=== PATIENT | male | born 1960 | race Asian ===

== ENCOUNTER 2016-12-23 09:14 | Emergency (ER) | payer BC ==
[~2016-12-23] VITALS: Ht 157.5 cm; Wt 68.0 kg
[2016-12-23 09:36] VITALS: BP 141/89
[2016-12-23] MEDS ORDERED: NAPROXEN 500 MG TABLET PO ONE (10:00)
[2016-12-23] MEDS ORDERED: CYCLOBENZAPRINE 10 MG TABLET. PO ONE (10:00)
--- NOTE | 2016-12-23 10:16 | PHYS DOC ---
Past Medical History Past Medical History: No Pertinent History Past Surgical History: No Surgical History Alcohol Use: None Drug Use: None Adult General Chief Complaint Chief Complaint: BACK PAIN OR INJURY HPI HPI Patient is a 56 year old male who presents with back injury. Patient states he was standing from sitting position in the bathroom, felt a sudden strain to his right lower back. Denies any fall or trauma. Denies lower extremity numbness or weakness. No fevers or chills, vomiting, abdominal pain, dysuria or hematuria, lower extremity numbness or weakness, saddle anesthesia, bowel/bladder incontinence/retention. No previous history of back injury. No back surgeries. Previously healthy. Visiting from [facility]. Patient speaks Polish, accompanied by a friend who is serving as a fluent inspection supervisor. Review of Systems Review of Systems Constitutional: Denies fever or chills HENT: Denies nasal congestion or sore throat Respiratory: Denies cough or shortness of breath Cardiovascular: Denies chest pain or edema GI: Denies abdominal pain, nausea, vomiting : Denies dysuria or hematuria Musculoskeletal: Reports back pain, denies joint pain Integument: Denies rash Neurologic: Denies headache, focal weakness or sensory changes Current Medications Current Medications Current Medications Medications (Trade) Dose Ordered Sig/Armond Start Time Stop Time Status Last Admin Dose Admin Cyclobenzaprine HCl (Flexeril) 10 mg 1X ONCE 12/23/16 10:00 12/23/16 10:01 DC 12/23/16 10:05 10 MG Naproxen (Naprosyn) 500 mg 1X ONCE 12/23/16 10:00 12/23/16 10:01 DC 12/23/16 10:05 500 MG Allergies Allergies Allergies Coded Allergies Type Severity Reaction Last Updated Verified No Known Drug Allergies 12/23/16 No Physical Exam Physical Exam Constitutional: Well developed, well nourished, no acute distress, non-toxic appearance. HENT: Normocephalic, atraumatic, bilateral external ears normal, oropharynx moist, nose normal. Eyes: conjunctiva normal, no discharge. Neck: supple, no stridor. Cardiovascular: RRR, no murmurs, no edema. Lungs & Thorax: LCTAB, no wheezing, no respiratory distress. Abdomen: soft, nontender, nondistended. No masses or pulsatile mass. Skin: Warm, dry, no erythema, no rash. Back: No spinal tenderness or step-offs, no CVA tenderness, right paraspinous muscle tenderness. Extremities: No tenderness, no edema. Neurologic: Alert and oriented X 3, no focal deficits noted. symmetric strength/ sensation to lower extremities, symmetric dp/pt pulses. Psychologic: Affect normal, judgement normal, mood normal. Current Patient Data Vital Signs Vital Signs Date Time Temp Pulse Resp B/P Pulse Ox O2 Delivery O2 Flow Rate FiO2 12/23/16 09:36 98.1 72 18 99 Room Air 98.1 EKG EKG [] Radiology/Procedures Radiology/Procedures [] Course & Med Decision Making Course & Med Decision Making Pertinent Labs and Imaging studies reviewed. (See chart for details) Patient presents with back pain. No spinal tenderness, no red flag symptoms to suggest serious etiology of pain. Pain appears to be muscular. Discussed results with patient and friend. X-ray likely to be low utility and he is comfortable with not having imaging performed. Gave naproxen and Flexeril here. Recommend continue Tylenol or ibuprofen and provided prescription for Flexeril to take as needed for muscle spasm, given sedation precautions, no drinking alcohol or driving while taking this medication. Follow-up with Dr. Moore in the primary care clinic or choose another physician if desired, follow-up in one to 2 weeks if symptoms not improving. Return to the emergency department for high fever, severe abdominal pain, symptoms of cauda equina syndrome, numbness or weakness in lower extremities, any otherwise worsening condition. Discharged home in stable condition.. [] Dragon Disclaimer Dragon Disclaimer This electronic medical record was generated, in whole or in part, using a voice recognition dictation system. Departure Departure Impression: Primary Impression: Lumbar strain Disposition: 01 HOME, SELF-CARE Condition: STABLE Referrals: TABITHA MOORE MD Patient Instructions: Back Pain, Adult, [id number] Additional Instructions: You seen in the emergency department today for back pain. This appears to be muscle strain. Please rest, apply ice or heat, take Tylenol or ibuprofen as needed for pain, use Flexeril for muscle spasm. Try to do gentle stretching exercises. Follow-up with Dr. Moore or the primary care doctor of your choice, in one to 2 weeks if not improving. Return to the emergency department for high fever, severe abdominal pain, numbness or weakness in legs, loss of control of bowels or bladder, any otherwise worsening condition. Scripts Cyclobenzaprine Hcl 5 Mg Tablet1 Tab PO TID PRN MUSCLE SPASMS #15 TAB Prov:NANCY TILLEY MD 12/23/16 NANCY TILLEY MD Dec 23, 2016 10:16
[2016-12-23] MEDS ORDERED: CYCL5TAB PO (10:21)
[2016-12-24] MEDS ORDERED: HYDR-971 PO (09:53)
[2016-12-24] MEDS ORDERED: IBUP-1060 PO (09:53)
== END 2016-12-23 10:39 | disposition home or self-care (01) ==
LOC: ER 09:14
DX: S39.012A Strain of muscle, fascia and tendon of lower back, initial encounter (principal); W18.39XA Other fall on same level, initial encounter; Y93.89 Activity, other specified; Y99.8 Other external cause status; Y92.091 Bathroom in other non-institutional residence as the place of occurrence of the external cause
CPT/HCPCS: 99283

== ENCOUNTER 2016-12-24 08:38 | Emergency (ER) | payer BC ==
[~2016-12-24 08:38] MED LIST: CYCL5TAB PO
[2016-12-24] MEDS ORDERED: KETOROLAC TROMETHAMINE 60 MG/2 ML SYRINGE. IM ONE (09:15)
[2016-12-24] MEDS ORDERED: DIAZEPAM 10 MG/2 ML DISP.SYRIN. IM ONE (09:30)
[2016-12-24] MEDS ORDERED: oxyCODONE INTENSOL 20 MG/ML ORAL.CONC. SL ONE (09:45)
[2016-12-24] MEDS ORDERED: IBUP-1060 PO (09:53)
[2016-12-24] MEDS ORDERED: HYDR-971 PO (09:53)
--- NOTE | 2016-12-24 09:54 | PHYS DOC ---
Past Medical History Past Medical History: No Pertinent History Past Surgical History: No Surgical History Alcohol Use: None Drug Use: None Adult General Chief Complaint Chief Complaint: BACK PAIN - NO INJURY HPI HPI Patient is a 56 year old male who was seen in the emergency department yesterday for the same complaint and is back today with continued pain. The patient does not speak Bermudian but brings with him a friend who speaks Bermudian well and serves as the patient services representative. Yesterday, the patient was sitting in a chair, he stood up and had sudden onset of pain on the right side of the middle of his back which was worse with movement. He was seen here in the ED and diagnosed with back strain. He was prescribed [id number] analgesia and cyclobenzaprine. He has been taking Tylenol and cyclobenzaprine as prescribed. His pain is no better. He is able to lay still and be fairly comfortable but as soon as he moves it hurts a lot. The pain is nonradiating. It does not move to the front of his abdomen and is not in a kidney stone distribution. The pain is not colicky but is worse with movement and better although not gone when he lays still. He's never had anything like this before. He has not had any more recollection of what might of caused his pain, he just recalls standing up from a chair and it hit him suddenly. He's had no new symptoms develop. Patient is in the area visiting from out of town. Review of Systems Review of Systems Constitutional: Denies fever or chills [] Eyes: Denies change in visual acuity, redness, or eye pain [] HENT: Denies nasal congestion or sore throat [] Respiratory: Denies cough or shortness of breath [] Cardiovascular: Denies chest pain GI: Denies abdominal pain, nausea, vomiting, bloody stools or diarrhea [] : Denies dysuria or hematuria [] Musculoskeletal: As in history of present illness, denies radiation of pain, denies pain in his legs or weakness of legs Integument: Denies rash or skin lesions [] Neurologic: Denies headache, focal weakness or sensory changes [] Current Medications Current Medications Current Medications Medications (Trade) Dose Ordered Sig/Armond Start Time Stop Time Status Last Admin Dose Admin Diazepam (Valium) 10 mg 1X ONCE 12/24/16 09:30 12/24/16 09:31 DC 12/24/16 09:28 10 MG Ketorolac Tromethamine (Toradol Im) 60 mg 1X ONCE 12/24/16 09:15 12/24/16 09:16 DC 12/24/16 09:28 60 MG Oxycodone HCl (Roxicodone Conc) 5 mg 1X ONCE 12/24/16 09:45 12/24/16 09:46 DC 12/24/16 09:50 5 MG Allergies Allergies Allergies Coded Allergies Type Severity Reaction Last Updated Verified No Known Drug Allergies 12/23/16 No Physical Exam Physical Exam Constitutional: Well developed, well nourished, no acute distress, non-toxic appearance. Patient does appear to have an increased pain when asked to sit up or roll over on the cart. No dyspnea, vital signs unremarkable. HENT: Normocephalic, atraumatic, bilateral external ears normal, nose normal. [] Eyes: conjunctiva normal, no discharge. [] Neck: Normal range of motion, no tenderness, supple, no stridor. [] Cardiovascular:Heart rate regular rhythm, no murmur [] Lungs & Thorax: Bilateral breath sounds clear to auscultation [] Abdomen: Bowel sounds normal, soft, no tenderness, nondistended, no masses, no pulsatile masses. [] Skin: Warm, dry, no erythema, no rash. [] Back: No skin lesions or other abnormality. No evidence of injury. No visible or palpable paraspinous muscle spasm. No midline tenderness. The area of pain is to the right of approximately T7 to T10. Extremities: No tenderness, no cyanosis, no clubbing, ROM intact, no edema. [] Neurologic: Alert and oriented X 3, normal motor function, normal sensory function, no focal deficits noted. [] Current Patient Data Vital Signs Vital Signs Date Time Temp Pulse Resp B/P Pulse Ox O2 Delivery O2 Flow Rate FiO2 12/24/16 10:05 65 16 138/83 99 Room Air 12/24/16 08:56 97.4 97.4 EKG EKG [] Radiology/Procedures Radiology/Procedures [] Course & Med Decision Making Course & Med Decision Making Pertinent Labs and Imaging studies reviewed. (See chart for details) 56-year-old male with what sounds like an acute spasm of the thoracic back muscle, likely paraspinous musculature. There is no radiation of the pain. It was not a traumatic injury. Yesterday he was prescribed cyclobenzaprine BUT has had little relief, although he is taking only acetaminophen for pain. We will increase his pain medication to ibuprofen 800 3 times a day and also a prescription for hydrocodone which he can combine with the ibuprofen if necessary. He was given an injection in the ED of Toradol, given oral oxycodone , and 1 dose of IM Valium for improved muscle relaxant. He is to use ice for pain and I did educate him to anticipate 2-3 days of continued pain under the circumstances that it did not get better overnight. Yesterday he was given referrals to Dr. Williamson for follow-up. [] Radames Disclaimer Dragon Disclaimer This electronic medical record was generated, in whole or in part, using a voice recognition dictation system. Departure Departure Impression: Primary Impression: Strain of thoracic paraspinal muscles excluding T1 and T2 levels Disposition: 01 HOME, SELF-CARE Condition: STABLE Referrals: NO PCP (PCP) Patient Instructions: Back Pain, Adult, [id number] Additional Instructions: I believe your pain is caused by a strained muscle. Sometimes these large muscles in your back can have a strain or spasm for no apparent reason or something minor. We will make the following changes to your pain medication. Stop taking Tylenol, acetaminophen. Instead, take ibuprofen 800 mg every 8 hours. You had an injection here of a similar medication, your next dose will be due at 1:30 pm then every 8 hours. For severe pain, I have prescribed hydrocodone. This is an opiate. Do not take while driving. It will cause sleepiness and constipation. We hope you do not need this for more than about 2 or 3 days. Take 1-2 every 4-6 hours as needed. This may be combined with ibuprofen. Do not combine this medication with Tylenol , acetaminophen. Continue to take the cyclobenzaprine, muscle relaxant, as prescribed by Dr. Power yesterday. Ice to area of pain 15-20 minutes out of every 1-2 hours. Follow-up in 2-3 days with the referral given to you yesterday if your pain is not improving. It may take several days to completely go away, but we expect improvement in 2-3 days. Scripts Ibuprofen 800 Mg [id number] Mg PO Q8HRS PRN INFLAMMATION #20 TAB Every 8 hours for pain of back muscle spasm Prov:BITA ARREDONDO MD 12/24/16 Hydrocodone/Apap 5-325 (Donnell[place] 5-325 Tablet)1 Each Tablet1-2 Tab PO Q4-6HRS #14 TAB For severe pain of back muscle spasm May be combined with ibuprofen Prov:BITA ARREDONDO MD 12/24/16 Problem Qualifiers Primary Impression: Strain of thoracic paraspinal muscles excluding T1 and T2 levels Encounter type: subsequent encounter Qualified Code: S29.012D - Strain of muscle and tendon of back wall of thorax, subsequent encounter BITA ARREDONDO MD Dec 24, 2016 09:54
[2016-12-24 10:05] VITALS: BP 138/83
== END 2016-12-24 10:19 | disposition home or self-care (01) ==
LOC: ER 08:38
DX: S29.012D Strain of muscle and tendon of back wall of thorax, subsequent encounter (principal); X58.XXXD Exposure to other specified factors, subsequent encounter; Y92.89 Other specified places as the place of occurrence of the external cause
CPT/HCPCS: 96372; 99284; J1885; J3360